=== PATIENT | female | born 2000 | race Caucasian/White ===

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

== ENCOUNTER 2021-03-18 12:55 | Emergency (ER) | payer OTHER, SELFPAY ==
[2021-03-18 12:55] VITALS: BP 130/95; PULSE 115; RESP 18; TEMP 37.1; O2SAT 97; BMI 43.0
[2021-03-18 13:17] LABS: Apearance,Urine Clear (Clear); Bilirubin,Urine Negative (Negative); Blood, Urine Negative (Negative); Color,Urine Yellow (Yellow); Glucose,Urine (UA) Negative (Negative); Ketones,Urine Negative (Negative); Protein,Urine Negative (Negative); Urobilinogen,Urine 0.2 EU/dl (0.2)
[2021-03-18 13:18] LABS: UTC Leukocyte Esterase,Urine Trace (Negative); UTC Nitrate,Urine Negative (Negative)
--- NOTE | 2021-03-18 13:32 | HMH.EDUTC ---
[facility] [place] Clinical Impression: Abdominal pain Qualifiers: Abdominal location: unspecified location Qualified Code(s): R10.9 - Unspecified abdominal pain Disposition: Still a Patient Condition on Discharge: Fair Referrals: Nash Ac [Primary Care Provider] - Time of Disposition: 14:11 Medical Decision Making - Medical Records Medical records reviewed: No: I reviewed the patient's medical records. - Dung Inquiry Pt receiving controlled substance: No Vital Signs: 03/18/21 12:55 Temperature 98.7 F Temperature Source Oral Pulse Rate [Right Brachial] 115 H Respiratory Rate 18 Blood Pressure [Right Arm] 130/95 H Blood Pressure Mean [Right Arm] 106 Blood Pressure Source [Right Arm] Automatic Cuff Blood Pressure Position [Right Arm] Sitting 02 Sat by Pulse Oximetry 97 Oxygen Delivery Method Room Air - Lab Data Lab results reviewed: Yes: I reviewed the patient's lab results. Lab Results 03/18/21 13:14: Urine Color Yellow, Urine Appearance Clear, Urine pH 5.0, Ur Specific [place] 1.030, Urine Protein Negative, Urine Glucose (UA) Negative, Urine Ketones Negative, Urine Blood Negative, Urine Nitrate Negative, Urine Bilirubin Negative, Urine Urobilinogen 0.2, Ur Leukocyte Esterase Trace 03/18/21 13:24: [facility]st Clinic Negative Orders (Tests/Meds): ORDERS Category Date Time Status Urine Culture Stat Micro 03/18/21 13:29 Received Medical Decision Narrative: She was transferred to the er for abdominal pain. [facility] [place] - General Stated complaint: right abdomen pain Time Seen by Provider: 03/18/21 13:33 Mode of Arrival: Ambulatory Source of Information: Patient Limitations: No Limitations Description of Symptoms (Recalled from Triage Doc. by RN): PATIENT C/O SEVERE PAIN TO RUQ X 2 WEEKS. STATES PAIN IS CONSTANT BUT WORSE WITH BREATHING AND URINATION. ALSO C/O NAUSEA, VOMITING, CHILLS, AND SWEATS HEENT Symptoms (Recalled from RN notes): No Resp Symptoms (Recalled from RN notes): No Skin Symptoms (Recalled from RN notes): No MS Symptoms (Recalled from RN notes): No Functional Status (Recalled from RN notes): WNL - History of Present Illness Provider Complaint: She states that she has had right sided abdominal pain for the past 2 weeks. She has been to the er at [place] when it began. She states that a ct scan was done there but the oral contrast hadnt went all thru her system, so her appendix was not visualized. - Related Data Home Medications Medication Instructions Recorded Confirmed Loperamide HCl [Loperamide] 2 mg PO QIDP PRN 03/18/21 03/18/21 Ondansetron [Zofran 4mg ODT] 4 mg PO BIDP PRN 03/18/21 03/18/21 Allergies Allergy/AdvReac Type Severity Reaction Status Date / Time alcohol Allergy Intermediate Itching, Verified 10/07/20 10:29 [From Mastisol Liquid Rash, Adhesive] Redness gum mastic Allergy Intermediate Itching, Verified 10/07/20 10:29 [From Mastisol Liquid Rash, Adhesive] Redness hydrocodone [HYDROCODONE] Allergy Intermediate I-ITCHING Verified 10/07/20 10:29 methyl salicylate Allergy Intermediate Itching, Verified 10/07/20 10:29 [From Mastisol Liquid Rash, Adhesive] Redness storax Allergy Intermediate Itching, Verified 10/07/20 10:29 [From Mastisol Liquid Rash, Adhesive] Redness povidone-iodine AdvReac Rash Verified 10/07/20 10:29 [From Betadine] soap [From Betadine] AdvReac Rash Verified 10/07/20 10:29 - Worker's Comp Is this a Worker's Comp case?: No [facility] [place] History - Hepatitis A Screen Drug use history?: No High risk sexual behaviors?: No History of sexually transmitted infection?: No Currently employed?: No Childcare worker?: No Do you have indoor plumbing?: Yes Do you have electricity?: Yes Attestation statement:: This patient has been screened for Hepatitis A risk factors. I have reviewed the patient's past medical history: Yes Medical History: Reports:: Asthma, MRSA Denies:: Cancer, Diab
[2021-03-18 13:42] LABS: UTC Pregnancy Test, Urine Negative (Negative)
--- NOTE | 2021-03-18 13:50 | PC.NURSE ---
PATIENT SENT TO ER PER Meme MARCOS APRN FOR FURTHER EVALUATION. REPORT GIVEN TO Deisy RUSS RN
[2021-03-18 14:28] VITALS: BP 126/66; PULSE 94; RESP 18; TEMP 36.8; O2SAT 100; BMI 42.9
--- NOTE | 2021-03-18 14:45 | HMH.EDGENADL ---
ED Disposition Clinical Impression: Right upper quadrant pain, Vomiting and diarrhea Disposition: Home, Self-Care Condition on Discharge: Good Instructions: DI for Acute Abdominal Pain, DI for Vomiting -- Adult, DI for Diarrhea and Traveler's Diarrhea -- Adult Additional Instructions: Continue Zofran or Phenergan and Imodium for symptoms. Follow-up with your primary care provider. Referrals: Nash Ac [Primary Care Provider] - - Critical Care Critical Care Time: No Attestation: On 03/18/21, the high probability of a clinically significant, sudden or life threatening deterioration of the following system(s) required my full and direct attention, intervention and personal management. The time I documented below is in addition to time spent performing reported procedures but includes the following listed in this critical care notation. Medical Decision Making - Dung Inquiry Pt receiving controlled substance: No Vital Signs: 03/18/21 12:55 03/18/21 14:28 03/18/21 15:00 Temperature 98.7 F 98.3 F Temperature Source Oral Oral Pulse Rate 102 H Pulse Rate [Right Brachial] 115 H 94 H Respiratory Rate 18 18 18 Blood Pressure 123/74 Blood Pressure [Right Arm] 130/95 H 126/66 Blood Pressure Mean Blood Pressure Mean [Right Arm] 106 86 Blood Pressure Source [Right Arm] Automatic Cuff Blood Pressure Position [Right Arm] Sitting 02 Sat by Pulse Oximetry 97 100 98 Oxygen Delivery Method Room Air Room Air 03/18/21 15:30 03/18/21 16:30 Temperature Temperature Source Pulse Rate 90 95 H Pulse Rate [Right Brachial] Respiratory Rate 90 H 18 Blood Pressure 116/81 125/76 Blood Pressure [Right Arm] Blood Pressure Mean 85 Blood Pressure Mean [Right Arm] Blood Pressure Source [Right Arm] Blood Pressure Position [Right Arm] 02 Sat by Pulse Oximetry 99 100 Oxygen Delivery Method - Lab Data Lab Results 03/18/21 13:14: Urine Color Yellow, Urine Appearance Clear, Urine pH 5.0, Ur Specific [place] 1.030, Urine Protein Negative, Urine Glucose (UA) Negative, Urine Ketones Negative, Urine Blood Negative, Urine Nitrate Negative, Urine Bilirubin Negative, Urine Urobilinogen 0.2, Ur Leukocyte Esterase Trace 03/18/21 13:24: [facility] Clinic Negative 03/18/21 14:16: WBC 6.2, RBC 4.54, Hgb 12.9, Hct 39.2, MCV 86.4, MCH 28.3, MCHC 32.8, RDW 13.8, Plt Count 314, MPV 8.2, Neut % (Auto) 62.4, Lymph % (Auto) 29.6, [place] % (Auto) 5.4, Eos % (Auto) 1.8, Baso % (Auto) 0.8, Neut # (Auto) 3.9, Lymph # (Auto) 1.8, [place] # (Auto) 0.3, Eos # (Auto) 0.1, Baso # (Auto) 0.1 03/18/21 14:16: Sodium 144, Potassium 3.9, Chloride 108 H, Carbon Dioxide 26, Anion Gap 13.9, BUN 10, Creatinine 0.80, Estimated Creat Clear 110, Estimated GFR 92, Est GFR ( Amer) 112, Glucose 79, Calcium 9.1, Total Bilirubin 0.5, AST 22, ALT 23, Alkaline Phosphatase 66, Total Protein 7.6, Albumin 4.4, Globulin 3.2, Albumin/Globulin Ratio 1.4, Amylase 54, Lipase 44 03/18/21 14:16: Serum HCG, Qual Negative 03/18/21 14:16: ESR 42 H 03/18/21 14:16: C-Reactive Protein 4.4 H Result diagrams: 03/18/21 14:16 03/18/21 14:16 Orders (Tests/Meds): ED MEDICATIONS Discontinued Medications Generic Name Dose Route Start Last Admin Trade Name Freq PRN Reason Stop Dose Admin Sodium Chloride 1,000 mls @ 999 mls/hr 03/18/21 14:45 03/18/21 15:25 Sod Chlor 0.9% 1000ml Bag IV 03/18/21 15:45 999 mls/hr .Q1H1M ABIMAEL Administration Iopamidol 75 ml 03/18/21 15:57 03/18/21 15:58 Iopamidol-370 (76%);100ml Bottle IV 03/18/21 15:58 75 ml ONCE ONE Administration Ketorolac Tromethamine 30 mg 03/18/21 15:17 03/18/21 15:25 Ketorolac 30mg/Ml Vial IV 03/18/21 15:18 30 mg ONCE ONE Administration Ondansetron HCl 4 mg 03/18/21 14:44 Ondansetron 4mg/2ml Vial IV 03/18/21 14:45 ONCE ONE Ondansetron HCl 4 mg 03/18/21 15:17 03/18/21 15:25 Ondansetron 4mg/2ml Vial IV 03/18/21 15:18 4 mg ONCE ONE Administrati
[2021-03-18 14:58] LABS: Basophils # 0.1 K/mm3 (0-0.2); Basophils % 0.8 % (0.1-2.0); Eosinophils # 0.1 K/mm3 (0.0-0.4); Eosinophils % 1.8 % (0.1-12.0); Hematocrit 39.2 % (37.0-47.0); Hemoglobin 12.9 g/dL (12.2-16.2); Lymphocytes # 1.8 K/mm3 (0.7-4.5); Lymphocytes % 29.6 % (10-50); Mean Corpuscular HGB Conc 32.8 g/dL (31.8-35.4); Mean Corpuscular Hemoglobin 28.3 pg (27.0-31.2); Mean Corpuscular Volume 86.4 fl (81-99); Mean Platelet Volume 8.2 fl (7.4-10.4); Monocytes # 0.3 K/mm3 (0.1-1.0); Monocytes % 5.4 % (1.7-9.3); Neutrophils # 3.9 K/mm3 (1.8-7.8); Neutrophils % 62.4 % (37.0-80.0); Platelet Count 314 K/mm3 (142-424); Red Blood Count 4.54 M/mm3 (4.20-5.40); Red Cell Distribution Width 13.8 % (11.5-17.5); White Blood Count 6.2 K/mm3 (4.5-13.0)
[2021-03-18 15:00] VITALS: BP 123/74; PULSE 102; RESP 18; O2SAT 98
[2021-03-18 15:09] LABS: HCG Qualitative, Serum Negative (Negative)
[2021-03-18 15:12] LABS: Alanine Aminotransferase 23 U/L (12-78); Albumin Level 4.4 g/dl (3.5-5.0); Albumin/Globulin Ratio 1.4 (1.1-1.8); Alkaline Phosphatase 66 U/L (38-126); Amylase 54 U/L (30-110); Anion Gap 13.9 mEq/L (5-15); Aspartate Amino Transferase 22 U/L (14-36); Bilirubin,Total 0.5 mg/dl (0.2-1.3); Blood Urea Nitrogen 10 mg/dl (7-17); Calcium 9.1 mg/dl (8.4-10.2); Carbon Dioxide 26 mmol/L (22.0-30.0); Chloride 108 mmol/L (98-107); Creatinine Clearance Estimated 110 mL/min (50-200); Estimated Glomerular Filt Rate 92 ml/min (>60); GFR (African American) 112 ML/MIN (>60); Globulin 3.2 g/dL (1.3-3.2); Glucose 79 mg/dl (74-100); Lipase 44 U/L (23-300); Potassium 3.9 mmoL/L (3.5-5.1); Sodium 144 mmol/L (136-145); Total Protein,Serum 7.6 g/dl (6.3-8.2)
--- NOTE | 2021-03-18 15:14 | US_ITS ---
PROCEDURE: US GALLBLADDER CLINICAL INDICATION: abdominal pain Right upper quadrant pain COMPARISON: No exams were available for comparison FINDINGS: Pancreas: Pancreas is not well delineated due to overlying bowel gas. Liver: Unremarkable. There is appropriate direction of blood flow within a non dilated portal vein. Right kidney: Unremarkable appearing. No hydronephrosis. Gallbladder: No stones are evident. There is no gallbladder wall thickening. Common duct is normal in diameter. IMPRESSION: Negative gallbladder ultrasound. No stones evident. Dictated by: Yuri Perez MD 03/18/2021 16:38 Yuri Perez MD in [place] 03/18/2021 16:38
--- NOTE | 2021-03-18 15:15 | CT_ITS ---
PROCEDURE: CT ABDOMEN PELVIS W CON CLINICAL INDICATION: abdominal pain Right upper quadrant pain COMPARISON: No exams were available for comparison TECHNIQUE: IV Contrast: 75ML Isovue 370 Oral Contrast None Axial images obtained with sagittal and coronal reformats. All CT scans at the facility use one or more dose reduction, viz: automated exposure control, ma/kV adjustment per patient size (including targeted exams where dose is matched to indication, i.e. head), or iterative reconstruction technique. FINDINGS: LOWER THORAX: No acute finding ABDOMEN & PELVIS: The liver, gallbladder, spleen, adrenal glands, pancreas, and kidneys have an unremarkable appearance. No renal or ureteral calculi. No hydronephrosis. No evidence of appendicitis. No pelvic mass or abnormal fluid collection. No intestinal obstruction or free air. There are few small mesenteric lymph nodes. No acute bony findings. IMPRESSION: No acute finding Dictated by: Yuri Perez MD 03/18/2021 16:19 Yuri Perez MD in [place] 03/18/2021 16:19
[2021-03-18 15:30] VITALS: BP 116/81; PULSE 90; RESP 90; O2SAT 99
[2021-03-18 15:31] LABS: C-Reactive Protein 4.4 mg/L (0-4)
[2021-03-18 15:50] LABS: Erythrocyte Sedimentation Rate 42 mm/hr (0-20)
[2021-03-18 16:30] VITALS: BP 125/76; PULSE 95; RESP 18; O2SAT 100
[2021-03-18 17:33] VITALS: BP 109/85; PULSE 90; RESP 20; TEMP 36.7; O2SAT 99
== END 2021-03-18 17:37 | disposition home or self-care (01) ==
LOC: UTC 12:59 → ER 13:57
PROVIDERS: Nurse Practitioner Family; Emergency Provider Emergency Medicine; PCP Pediatrics
DX: R10.11 Right upper quadrant pain (principal); J45.909 Unspecified asthma, uncomplicated
CPT/HCPCS: 74177; 76705; 80053; 81003; 81025; 82150; 83690; 84703; 85025; 85651; 86140; 87086; 96365; 96375; 99283; J2405; Q9967

== ENCOUNTER 2021-05-02 19:49 | Emergency (ER) | payer OTHER, SELFPAY ==
[2021-05-02 20:02] VITALS: BP 134/74; PULSE 95; RESP 16; TEMP 36.6; O2SAT 99; BMI 28.8
[2021-05-02 21:00] VITALS: BP 134/74; PULSE 95; RESP 16; TEMP 36.6; O2SAT 99; BMI 28.8
--- NOTE | 2021-05-02 21:41 | HMH.EDUTC ---
[facility] [place] Disposition Clinical Impression: Allergic reaction Qualifiers: Encounter type: initial encounter Qualified Code(s): T78.40XA - Allergy, unspecified, initial encounter Disposition: Home, Self-Care Condition on Discharge: Good Instructions: DI for General Allergic Reactions, Diphenhydramine Additional Instructions: Do not take any more of the Sumatriptan Follow up with your Family Doctor tomorrow and inform them of your reaction to new medication Return if needed Straight to ER if any life threatening symptoms Referrals: Nash Ac [Primary Care Provider] - As needed Time of Disposition: 22:14 Medical Decision Making - Dung Inquiry Pt receiving controlled substance: No Dung was queried for this patient: No Vital Signs: 05/02/21 20:02 05/02/21 21:00 05/02/21 22:09 Temperature 97.8 F 97.8 F 97.8 F Temperature Source Oral Oral Pulse Rate 95 H Pulse Rate [Right] 95 H 95 H Respiratory Rate 16 16 16 Blood Pressure 134/74 Blood Pressure [Right Arm] 134/74 134/74 Blood Pressure Mean [Right Arm] 94 94 Blood Pressure Source [Right Arm] Automatic Cuff Blood Pressure Position [Right Arm] Sitting 02 Sat by Pulse Oximetry 99 99 Oxygen Delivery Method Room Air Orders (Tests/Meds): ED MEDICATIONS Discontinued Medications Generic Name Dose Route Start Last Admin Trade Name Julianna PRN Reason Stop Dose Admin Methylprednisolone Sodium Succinate 125 mg 05/02/21 21:51 05/02/21 21:57 Methylprednisolone Sod Succ 125mg Vial IM 05/02/21 21:52 125 mg ONCE ONE Administration Medical Decision Narrative: Patient reports on Depo and denies chance of State that she has taken SoluMedrol injection in past without reactions or complications Rash improved and almost gone after injection [facility] [place] HPI - General Stated complaint: possible allergic reaction to new meds Time Seen by Provider: 05/02/21 21:41 Mode of Arrival: Ambulatory Source of Information: Patient Limitations: No Limitations Description of Symptoms (Recalled from Triage Doc. by RN): PATIENT C/O POSSIBLE ALLERGIC REACTION, ITCHING AND VOMITING HEENT Symptoms (Recalled from RN notes): No Resp Symptoms (Recalled from RN notes): No Skin Symptoms (Recalled from RN notes): Yes MS Symptoms (Recalled from RN notes): No Functional Status (Recalled from RN notes): WNL - History of Present Illness Provider Complaint: Patient state that she took a new medication that her PCP give her for Migraines State that after taking it she felt like she was itching all over, her throat was burning and she vomited State that now burning in throat and vomiting has stopped but still feeling itchy and has rash on her chest - Related Data Home Medications Medication Instructions Recorded Confirmed Loperamide HCl [Loperamide] 2 mg PO QIDP PRN 03/18/21 03/18/21 Ondansetron [Zofran 4mg ODT] 4 mg PO BIDP PRN 03/18/21 03/18/21 Allergies Allergy/AdvReac Type Severity Reaction Status Date / Time alcohol Allergy Intermediate Itching, Verified 10/07/20 10:29 [From Mastisol Liquid Rash, Adhesive] Redness gum mastic Allergy Intermediate Itching, Verified 10/07/20 10:29 [From Mastisol Liquid Rash, Adhesive] Redness hydrocodone [HYDROCODONE] Allergy Intermediate I-ITCHING Verified 10/07/20 10:29 methyl salicylate Allergy Intermediate Itching, Verified 10/07/20 10:29 [From Mastisol Liquid Rash, Adhesive] Redness storax Allergy Intermediate Itching, Verified 10/07/20 10:29 [From Mastisol Liquid Rash, Adhesive] Redness povidone-iodine AdvReac Rash Verified 10/07/20 10:29 [From Betadine] soap [From Betadine] AdvReac Rash Verified 10/07/20 10:29 - Worker's Comp Is this a Worker's Comp case?: No [facility] History - Hepatitis A Screen Drug use history?: No High risk sexual behaviors?: No History of sexually transmitted infection?: No Currently employed?: No Childcare worker?: No Do you have indoor p
[2021-05-02 22:09] VITALS: BP 134/74; PULSE 95; RESP 16; TEMP 36.6; O2SAT 99
== END 2021-05-02 22:25 | disposition home or self-care (01) ==
PROVIDERS: Emergency Provider Nurse Practitioner; PCP Pediatrics
DX: R11.10 Vomiting, unspecified (principal); T39.8X5A Adverse effect of other nonopioid analgesics and antipyretics, not elsewhere classified, initial encounter; Y92.019 Unspecified place in single-family (private) house as the place of occurrence of the external cause
CPT/HCPCS: 96372; 99202; G0463

== ENCOUNTER → 2021-09-05 10:06 | Outpatient (CLI) | payer OTHER, SELFPAY ==
--- NOTE | 2021-09-05 10:11 | XR_ITS ---
FINAL REPORT CLINICAL HISTORY: Pain for 1 month ,no known injury, pt has had sx on foot in 2019 and 2019 FINDINGS: LEFT FOOT Three views of the left foot demonstrate no acute fracture or dislocation. The visualized joint spaces are normally aligned. There is orthopedic hardware defects of the 2nd 3rd and 4th metatarsals. The soft tissues are unremarkable. IMPRESSION: No acute bony abnormality. Reviewed, Interpreted and Dictated by Edi Dee MD Transcribed by Glory Sheldon Authenticated by Edi Dee MD on 09/05/2021 10:42:50 AM [facility]
== END ==
PROVIDERS: PCP Pediatrics; Visit Provider Podiatrist
DX: M79.672 Pain in left foot (principal)
CPT/HCPCS: 73630

== ENCOUNTER → 2021-11-05 08:35 | Outpatient (CLI) | payer OTHER, SELFPAY ==
--- NOTE | 2021-11-05 08:35 | MR_ITS ---
FINAL REPORT CLINICAL HISTORY: pt states that she has a hx of having surgery on left foot. towards the distal end of phalanxes. she had plates and screws placed and then taken out. now experiencing similar pain to prior surgery. nki. COMPARISON: 07/30/2020 FINDINGS: Multiplanar MR imaging of the left lower leg was performed with and without contrast. There is mild bone marrow edema in the proximal second metatarsal without well-defined fracture. Abnormal T2 signal is seen dorsal to the third metatarsal which may represent edema or inflammation with contrast enhancement in the region likely related to inflammation. No bony mass is identified. The musculature is intact. No soft tissue mass or cyst is identified. There is no other evidence of abnormal contrast enhancement. IMPRESSION: Mild bone marrow edema in the proximal second metatarsal without well-defined fracture. Abnormal T2 signal dorsal to the third metatarsal with contrast-enhancement which may represent edema/inflammation. Reviewed, Interpreted and Dictated by Chino Montejo III, MD Transcribed by Antionette Ramos Authenticated by Chino Montejo III, MD on 11/07/2021 08:58:01 AM [facility]
== END ==
PROVIDERS: PCP Pediatrics; Visit Provider Podiatrist
DX: G57.62 Lesion of plantar nerve, left lower limb (principal); M77.42 Metatarsalgia, left foot; M77.52 Other enthesopathy of left foot and ankle; M79.605 Pain in left leg; M79.672 Pain in left foot; R20.2 Paresthesia of skin
CPT/HCPCS: 73720; A9576

== ENCOUNTER → 2021-12-12 07:39 | Outpatient (CLI) | payer OTHER, SELFPAY ==
--- NOTE | 2021-12-12 07:42 | XR_ITS ---
FINAL REPORT CLINICAL HISTORY: left foot pain wt bearing views pt shielded COMPARISON: September 05, 2021 FINDINGS: 3 weight-bearing views of the left foot were obtained. There is no acute fracture or dislocation. The joint spaces are intact. The soft tissues are unremarkable. IMPRESSION: No acute process. Reviewed, Interpreted and Dictated by Edi Dee MD Transcribed by Kian Gregg Authenticated by Edi Dee MD on 12/12/2021 11:05:21 AM [facility]
== END ==
PROVIDERS: PCP Pediatrics; Visit Provider Podiatrist
DX: M79.672 Pain in left foot (principal)
CPT/HCPCS: 73630

== ENCOUNTER 2023-07-31 16:32 | Emergency (ER) | payer OTHER, SELFPAY ==
[2023-07-31 16:33] VITALS: BP 124/85; PULSE 106; RESP 16; TEMP 36.8; O2SAT 100; BMI 41.3
--- NOTE | 2023-07-31 16:44 | HMH.EDGENADL ---
Discharge Plan Disposition Patient Disposition: Home, Self-Care Prescriptions Prescriptions: New ondansetron HCl 4 mg tablet 4 mg PO Q8H PRN (Reason: nausea and vomiting) 5 Days Qty: 30 0RF No Action budesonide-formoterol [Symbicort] 160-4.5 mcg/actuation HFA aerosol inhaler 1 puff INHALATION albuterol sulfate 90 mcg/actuation HFA aerosol inhaler 1 puff INHALATION Wegovy 0.25 mg/0.5 mL pen injector SQ Ubrelvy 50 mg tablet 50 mg PO Patient Comments: TAKE ONE TABLET BY MOUTH DAILY NEEDED. MAY REPEAT IN 2 HOURS IF NEEDED. levocetirizine 5 mg tablet 5 mg PO ketotifen fumarate 0.025 % (0.035 %) drops OPHTHALMIC fluticasone propionate 50 mcg/actuation spray,suspension INTRANASAL cyclobenzaprine 5 mg tablet 5 mg PO HS PRN (Reason: muscle spasm) Qty: 30 0RF Rx Instructions: Take one tablet at night before bed prn muscle cramp/spasm methylprednisolone 4 mg tablets,dose pack 4 mg PO PER PKG DIR PRN (Reason: Pain, swelling) Qty: 21 0RF Referrals Follow up/Referrals: Nash Ac [Primary Care Provider] - See instructions Activity Restrictions/Add. Instructions Additional Instructions/Restrictions: Please follow-up with your primary care provider. Please return to the emergency department if you develop any new or worsening symptoms or become concerned for your health. Please take Zofran as needed for nausea and vomiting. Clinical Impressions Clinical Impression: Nausea vomiting and diarrhea, Acute hypokalemia Abdominal pain Qualifiers: Abdominal location: right upper quadrant Qualified Code(s): R10.11 - Right upper quadrant pain Instructions Patient Instructions: DI for Diarrhea and Traveler's Diarrhea -- Adult, DI for Diarrhea and Traveler's Diarrhea -- Child, DI for Nausea -- Adult, DI for Nausea -- Child Discharge ED Provider: Christian Ling General Adult HPI General Chief complaint: Nausea/Vomiting/Diarrhea Stated complaint: vomiting, abd apin Time Seen by Provider: 07/31/23 16:35 History of Present Illness HPI narrative: 22-year-old female, reportedly previously healthy, mildly obese, presents with acute onset right upper quadrant pain that started yesterday at around 5 PM. Continues to be localized in the right upper quadrant. Is associated with nausea vomiting. She is also had some diarrhea. She reports no fever at home. She reports strong family history of gallbladder disease. She reports no prior surgeries. She denies smoking or drinking. She is on control. Reports irregular periods, last menstrual period 2 months ago. Related Data Home Medications Medication Instructions Recorded Confirmed albuterol sulfate 90 mcg/actuation 1 puff inhalation 11/21/21 12/12/21 aerosol inhaler budesonide-formoterol HFA 160 1 puff inhalation 11/21/21 12/12/21 mcg-4.5 mcg/actuation aerosol inhaler (Symbicort) fluticasone propionate 50 ml intranasal 11/21/21 12/12/21 mcg/actuation nasal spray,suspension ketotifen fumarate 0.025 % (0.035 ml ophthalmic (eye) 11/21/21 12/12/21 %) eye drops levocetirizine 5 mg tablet 5 mg PO 11/21/21 12/12/21 semaglutide (weight loss) 0.25 ml SQ 11/21/21 12/12/21 mg/0.5 mL subcutaneous pen injector (Wegovy) ubrogepant 50 mg tablet (Ubrelvy) 50 mg PO 11/21/21 12/12/21 Previous Rx's Medication Instructions Recorded cyclobenzaprine 5 mg tablet 5 mg PO HS PRN muscle spasm #30 09/05/21 tabs methylprednisolone 4 mg tablets in 4 mg PO PER PKG DIR PRN Pain, 11/23/21 a dose pack swelling #21 tabs ondansetron HCl 4 mg tablet 4 mg PO Q8H PRN nausea and 07/31/23 vomiting 5 days #30 tabs Allergies Allergy/AdvReac Type Severity Reaction Status Date / Time alcohol Allergy Intermediate Itching, Verified 06/19/23 11:35 [From Mastisol Liquid Rash, Adhesive] Redness gum mastic Allergy Intermediate Itching, Verified 06/19/23 11:35 [From Mastisol Liquid Ra
--- NOTE | 2023-07-31 16:49 | CT_ITS ---
PROCEDURE INFORMATION: Exam: CT Abdomen And Pelvis With Contrast Exam date and time: 07/31/2023 5:55 PM Age: 22 years old Clinical indication: Abdominal pain; Generalized; Additional info: Ruq pain, n/v/diarrhea TECHNIQUE: Imaging protocol: Computed tomography of the abdomen and pelvis with contrast. Radiation optimization: All CT scans at this facility use at least one of these dose optimization techniques: automated exposure control; mA and/or kV adjustment per patient size (includes targeted exams where dose is matched to clinical indication); or iterative reconstruction. Contrast material: ISOVUE; Contrast volume: 75 ml; Contrast route: IV; REPORTING DATA: Count of CT and Cardiac NM exams in prior 12 months: This patient has received 0 known CTs and 0 known cardiac nuclear medicine studies in the 12 months prior to the current study. COMPARISON: CT ABDOMEN PELVIS W CON 03/18/2021 3:56 PM FINDINGS: Lungs: Calcified granuloma at the right lung base. There are areas of subpleural reticulation throughout the visualized lungs which are nonspecific. Diaphragm: There is elevation of the right hemidiaphragm. Liver: Normal. No mass. Gallbladder and bile ducts: Normal. No calcified stones. No ductal dilation. Pancreas: The pancreas is of normal size and morphology, without evidence of masses, cysts, or calcifications. The pancreatic duct is not dilated. Spleen: The spleen is normal in size and attenuation. No splenic masses or cysts are observed. Adrenal glands: The adrenal glands appear normal. Kidneys and ureters: Both kidneys are of normal size and show uniform attenuation. There are no renal masses, cysts, or calculi. The adrenal glands appear normal. Stomach and bowel: The stomach, small bowel, and colon are well-distended and show no evidence of wall thickening, masses, or obstruction. Appendix: No evidence of appendicitis. Intraperitoneal space: Unremarkable. No free air. No significant fluid collection. Vasculature: Multiple pelvic phleboliths are present. Lymph nodes: There are mildly prominent but nonenlarged and nonspecific retroperitoneal nodes. Mesenteric nodes Urinary bladder: Unremarkable as visualized. Reproductive: No significant pathology. Bones/joints: The visualized osseous structures of the abdomen and pelvis appear intact and normal for patient age with no evidence of fractures or lytic or sclerotic lesions. Soft tissues: Unremarkable. IMPRESSION: No definite signs of inflammatory conditions, masses, adenopathy, or collections were observed in the abdomen or pelvis at the time of imaging. Additionally, the urinary tract and gastrointestinal system did not show any evidence of obstruction on the images acquired.
[2023-07-31 17:14] LABS: Microscopic, Urine URINE MICROSCOPIC (MICROSCOPIC)
[2023-07-31 17:17] LABS: Basophils % 0.6 % (0.1-2.0); Eosinophils % 1.2 % (0.1-12.0); Hematocrit 39.8 % (37.0-47.0); Hemoglobin 13.4 g/dL (12.2-16.2); Lymphocytes # 1.3 K/mm3 (0.7-4.5); Lymphocytes % 35.9 % (10-50); Mean Corpuscular HGB Conc 33.6 g/dL (31.8-35.4); Mean Corpuscular Volume 86.2 fl (81-99); Mean Platelet Volume 8.8 fl (7.4-10.4); Monocytes # 0.2 K/mm3 (0.1-1.0); Monocytes % 6.8 % (1.7-9.3); Neutrophils % 55.5 % (37.0-80.0); Platelet Count 267 K/mm3 (142-424); Red Blood Count 4.62 M/mm3 (4.20-5.40); White Blood Count 3.6 K/mm3 (4.8-10.8)
[2023-07-31 17:20] LABS: Appearance,Urine CLEAR (Clear); Blood, Urine Negative (Negative); Color,Urine YELLOW (Yellow); Glucose,Urine (UA) Negative (Negative); Ketones,Urine Negative (Negative); Leukocyte Esterase,Urine Negative (Negative); Nitrate,Urine POSITIVE (Negative); Protein,Urine TRACE (Negative); Specific Gravity, Urine >= 1.030 (1.005-1.030); Urobilinogen,Urine 0.2 EU/dl (0.2)
[2023-07-31 17:21] LABS: Chloride 102 mmol/L (98-107); Potassium 3.3 mmoL/L (3.5-5.1); Sodium 139 mmol/L (136-145)
[2023-07-31 17:23] LABS: Alanine Aminotransferase 25 U/L (12-78); Aspartate Amino Transferase 27 U/L (14-36); Blood Urea Nitrogen 14 mg/dl (7-17); Creatinine Clearance Estimated 87 mL/min (50-200); Estimated Glomerular Filt Rate 70 ml/min (>60); GFR (African American) 85 ML/MIN (>60)
[2023-07-31 17:24] LABS: Albumin Level 4.4 g/dl (3.5-5.0); Albumin/Globulin Ratio 1.2 (1.1-1.8); Alkaline Phosphatase 52 U/L (38-126); Anion Gap 11.3 mEq/L (5-15); Bilirubin,Total 0.9 mg/dl (0.2-1.3); Calcium 8.9 mg/dl (8.4-10.2); Carbon Dioxide 29 mmol/L (22.0-30.0); Globulin 3.6 g/dL (1.3-3.2); Glucose 88 mg/dl (74-100); Lipase 27 U/L (23-300)
[2023-07-31 17:26] LABS: HCG Qualitative, Serum Negative (Negative)
[2023-07-31 17:39] LABS: Bilirubin,Urine 1+ (Negative)
[2023-07-31 17:55] LABS: Bacteria,Urine Trace /lpf
[2023-07-31 18:36] VITALS: BP 141/90; PULSE 95; RESP 18; TEMP 36.9; O2SAT 98
== END 2023-07-31 18:37 | disposition home or self-care (01) ==
PROVIDERS: Emergency Provider Emergency Medicine; PCP Pediatrics
DX: R10.11 Right upper quadrant pain (principal); E87.6 Hypokalemia; R11.2 Nausea with vomiting, unspecified; R19.7 Diarrhea, unspecified; E66.9 Obesity, unspecified
CPT/HCPCS: 74177; 80053; 81001; 83690; 84703; 85025; 96361; 96374; 99284; J2405; Q9967

== ENCOUNTER → 2023-08-06 16:28 | Outpatient (CLI) | payer OTHER, SELFPAY ==
--- NOTE | 2023-08-06 16:32 | XR_ITS ---
PROCEDURE INFORMATION: Exam: XR Chest Exam date and time: 08/06/2023 4:40 PM Age: 22 years old Clinical indication: Cough; Additional info: Moderate persistant asthma with exacerbation TECHNIQUE: Imaging protocol: Radiologic exam of the chest. Views: 2 views. COMPARISON: CT ABDOMEN PELVIS W CON 07/31/2023 5:55 PM FINDINGS: Lungs: Consolidative opacity in the right middle lobe compatible with subsegmental atelectasis vs infiltrate. Pleural spaces: No significant pleural effusion. No pneumothorax. Heart/Mediastinum: Cardiomediastinal silouhette is within normal limits. Bones/joints: No evidence of acute osseous abnormality. IMPRESSION: Consolidative opacity in the right middle lobe compatible with subsegmental atelectasis vs infiltrate.
== END ==
PROVIDERS: PCP Pediatrics; Visit Provider Family Medicine
DX: J45.41 Moderate persistent asthma with (acute) exacerbation (principal); R05.9 Cough, unspecified
CPT/HCPCS: 71046

== ENCOUNTER 2023-09-18 14:13 | Outpatient (CLI) | payer OTHER, SELFPAY ==
[2023-09-18 14:38] LABS: Basophils % 0.6 % (0.1-2.0); Eosinophils # 0.1 K/mm3 (0.0-0.4); Eosinophils % 1.3 % (0.1-12.0); Hematocrit 41.3 % (37.0-47.0); Hemoglobin 13.1 g/dL (12.2-16.2); Lymphocytes # 1.2 K/mm3 (0.7-4.5); Lymphocytes % 34.6 % (10-50); Mean Corpuscular HGB Conc 31.8 g/dL (31.8-35.4); Mean Corpuscular Hemoglobin 27.7 pg (27.0-31.2); Mean Platelet Volume 7.6 fl (7.4-10.4); Monocytes # 0.3 K/mm3 (0.1-1.0); Neutrophils % 55.5 % (37.0-80.0); Platelet Count 280 K/mm3 (142-424); Red Blood Count 4.74 M/mm3 (4.20-5.40); Red Cell Distribution Width 13.5 % (11.5-17.5); White Blood Count 3.6 K/mm3 (4.8-10.8)
[2023-09-18 14:55] LABS: Chloride 105 mmol/L (98-107); Potassium 4.3 mmoL/L (3.5-5.1); Sodium 139 mmol/L (136-145)
[2023-09-18 14:57] LABS: Bilirubin,Unconjugated 0.5 mg/dL (0.0-1.1); Blood Urea Nitrogen 16 mg/dl (7-17); Estimated Glomerular Filt Rate 90 ml/min (>60); GFR (African American) 109 ML/MIN (>60)
[2023-09-18 14:58] LABS: Alanine Aminotransferase 18 U/L (12-78); Alkaline Phosphatase 46 U/L (38-126); Anion Gap 10.3 mEq/L (5-15); Aspartate Amino Transferase 22 U/L (14-36); Bilirubin,Indirect 0.5 mg/dL (0.0-0.9); Bilirubin,Total 0.5 mg/dl (0.2-1.3); Calcium 9.3 mg/dl (8.4-10.2); Carbon Dioxide 28 mmol/L (22.0-30.0); Cholesterol 187 mg/dl (140-200); Glucose 97 mg/dl (74-100); Magnesium 1.8 mg/dl (1.6-2.3); Total Protein,Serum 6.9 g/dl (6.3-8.2); Triglycerides 144 mg/dl (30-150); VLDL Cholesterol 29 mg/dL (0-40)
[2023-09-18 14:59] LABS: Chol/HDL Ratio 3.3 (1-3.5); HDL Cholesterol 57 mg/dl (40-60)
[2023-09-18 15:17] LABS: Free T4 (Free Thyroxine) 1.28 ng/dl (0.78-2.19)
[2023-09-18 15:19] LABS: Direct LDL Cholesterol 110.02 mg/dL (100-129)
[2023-09-18 15:30] LABS: Thyroid Stimulating Hormone 1.03 uIU/mL (0.465-4.68)
== END 2023-09-18 23:59 ==
LOC: RT 14:14
PROVIDERS: PCP Pediatrics; Visit Provider Nurse Practitioner
DX: R00.0 Tachycardia, unspecified (principal); R06.02 Shortness of breath; R07.89 Other chest pain; R94.31 Abnormal electrocardiogram [ECG] [EKG]
CPT/HCPCS: 36415; 80048; 80061; 80076; 83735; 84439; 84443; 85025; 93270

== ENCOUNTER 2023-09-19 15:50 | Emergency (ER) | payer OTHER, SELFPAY ==
[2023-09-19 15:52] VITALS: BP 124/90; PULSE 87; RESP 15; TEMP 36.8; O2SAT 98; BMI 40.7
--- NOTE | 2023-09-19 16:08 | US_ITS ---
PROCEDURE INFORMATION: Exam: US Abdomen, Limited; Right Upper Quadrant Exam date and time: 09/19/2023 4:15 PM Age: 23 years old Clinical indication: Abdominal pain; Additional info: Ruq pain radiating to back TECHNIQUE: Imaging protocol: Real time ultrasound of the abdomen with image documentation. Limited exam focused on the right upper quadrant. COMPARISON: US GALLBLADDER 03/18/2021 3:34 PM FINDINGS: Liver: Normal. No masses. Gallbladder: Normal. No gallstones. There is no gallbladder wall thickening. Biliary ducts: Normal. No stones. No dilation. Pancreas: Obscured by bowel gas. Right kidney: Normal. No mass. No hydronephrosis. IMPRESSION: No acute findings.
[2023-09-19 16:12] LABS: Microscopic, Urine URINE MICROSCOPIC (MICROSCOPIC)
--- NOTE | 2023-09-19 16:24 | [facility].EDGENADL ---
Discharge Plan Disposition Patient Disposition: Home, Self-Care Chief Complaint: Abdominal Pain Prescriptions Prescriptions: No Action cyclobenzaprine 5 mg tablet 5 mg PO HS PRN (Reason: muscle spasm) Qty: 30 0RF Rx Instructions: Take one tablet at night before bed prn muscle cramp/spasm desogestrel-ethinyl estradiol [Apri] 0.15-0.03 mg tablet PO Referrals Follow up/Referrals: Nash Ac [Primary Care Provider] - See instructions Activity Restrictions/Add. Instructions Additional Instructions/Restrictions: Call your family doctor to establish care for this visit to the emergency department and schedule follow-up within 48 hours to ensure improvement. If you have any worsening of your condition or any other concerning signs or symptoms, return to the emergency department or your primary care doctor for further evaluation. Also follow-up with your family doctor regarding white blood cell count. It was a little low today at 2.4 thousand, likely secondary to GI bug that you have. They will be able to redraw labs and make sure this is responding appropriately. Clinical Impressions Clinical Impression: Diarrhea, Abdominal pain Instructions Patient Instructions: DI for Acute Abdominal Pain Discharge ED Provider: uMrray Haro General Adult HPI General Chief complaint: Abdominal Pain Stated complaint: Abdominal Pain,nausea Time Seen by Provider: 09/19/23 15:54 Mode of Arrival: Ambulatory Source of Information: Patient Limitations: No Limitations Description of Symptoms (Recalled from ER Triage Doc. by RN): pt presents to ED with c/o RUQ abdominal pain that began approx 45 mins ago. pt reports pain as constant. radiation into back. History of Present Illness HPI narrative: 23-year-old female presenting with abdominal pain. She had this a couple months ago and was diagnosed with concern for cholecystitis, but nonoperative at that time ultimately. Patient having similar pain. Start about an hour ago after she was eating. Right upper quadrant, radiates straight through to her back. Associated with nausea without vomiting. Patient also started having diarrhea this nonbloody today without fevers or chills. States that she is also having hematuria without dysuria, frequency or urgency. Related Data Home Medications Medication Instructions Recorded Confirmed desogestrel 0.15 mg-ethinyl tab PO 09/18/23 09/18/23 estradiol 0.03 mg tablet (Apri) Previous Rx's Medication Instructions Recorded cyclobenzaprine 5 mg tablet 5 mg PO HS PRN muscle spasm #30 09/05/21 tabs Allergies Allergy/AdvReac Type Severity Reaction Status Date / Time alcohol Allergy Intermediate Itching, Verified 09/18/23 12:59 [From Mastisol Liquid Rash, Adhesive] Redness gum mastic Allergy Intermediate Itching, Verified 09/18/23 12:59 [From Mastisol Liquid Rash, Adhesive] Redness hydrocodone [HYDROCODONE] Allergy Intermediate I-ITCHING Verified 09/18/23 12:59 methyl salicylate Allergy Intermediate Itching, Verified 09/18/23 12:59 [From Mastisol Liquid Rash, Adhesive] Redness storax Allergy Intermediate Itching, Verified 09/18/23 12:59 [From Mastisol Liquid Rash, Adhesive] Redness Sulfa (Sulfonamide Allergy Verified 09/18/23 12:59 Antibiotics) povidone-iodine AdvReac Rash Verified 09/18/23 12:59 [From Betadine] soap [From Betadine] AdvReac Rash Verified 09/18/23 12:59 [facility] Disclaimer: The information contained in this section may have been updated after the patient was seen, as this information can be updated by other users. Medical History (Updated 09/19/23 @ 17:55 by Murray Haro MD) Abnormal ECG Chest pain Dyspnea Tachycardia Social History Smoking Status: Never smoker second hand exposure: No alcohol intake: never substance use type: denies use current occupational status: other Travel in the last 8 weeks: None household members: family housing: house current occupation: [employer] current occupational exposures/hazards: No caffeine: Yes ROS Obtained: Yes All systems reviewed & no additional complaints except as documented Physical Exam General General appearance: alert and in no apparent distress Head Head exam: atraumatic and normocephalic Eye Eye exam: Present normal appearance, PERRL and EOMI ENT ENT exam: Present mucous membranes moist Neck Neck exam: Present normal inspection, full ROM and trachea midline Respiratory Respiratory exam: Absent respiratory distress, wheezes, stridor, accessory muscle use or prolonged expiratory phase Cardiovascular Cardiovascular exam: Present regular rate and normal rhythm Abdominal Exam Abdominal exam: Present soft, tenderness and Teixeira's sign; Absent distention, guarding, rebound or rigidity Abdominal tenderness: Present RUQ and moderate Extremities Exam Extremities exam: Absent edema Neurological Exam Neurological exam: Present alert, oriented X3, CN II-XII intact and normal gait; Absent motor sensory deficit Skin Skin exam: Present warm and dry; Absent diaphoresis or erythema Medical Decision Making Medical Records Medical records reviewed: Yes I reviewed the patient's medical records. Dung Inquiry Pt receiving controlled substance: No Dung was queried for this patient: No Vital Signs: 09/19/23 15:52 Temperature 98.2 F Temperature Source Oral Pulse Rate [Left Radial] 87 Respiratory Rate 15 Blood Pressure [Right Arm] 124/90 Blood Pressure Mean [Right Arm] 101 02 Sat by Pulse Oximetry 98 Oxygen Delivery Method Room Air Lab Data Lab Results 09/19/23 16:02: Urine Color Yellow, Urine Appearance Clear, Urine pH 5.5, Ur Specific [place] >= 1.030, Urine Protein Negative, Urine Glucose (UA) Negative, Urine Ketones Negative, Urine Blood 3+, Urine Nitrate Negative, Urine Bilirubin Negative, Urine Urobilinogen 0.2, Ur Leukocyte Esterase Negative, Urine RBC 3-5, Urine WBC Occasional, Ur Squamous Epith Cells Occasional, Urine Bacteria 1+, Urine Mucus Trace 09/19/23 16:50: WBC 2.4 L D, RBC 4.50, Hgb 13.3, Hct 38.9, MCV 86.6, MCH 29.6, MCHC 34.2, RDW 13.9, Plt Count 204 D, MPV 8.2, Neut % (Auto) 53.4, Lymph % (Auto) 37.3, [place] % (Auto) 8.2, Eos % (Auto) 0.6, Baso % (Auto) 0.6, Neut # (Auto) 1.3 L, Lymph # (Auto) 0.9, [place] # (Auto) 0.2, Eos # (Auto) 0.0, Baso # (Auto) 0.0, Sodium 137, Potassium 4.1, Chloride 105, Carbon Dioxide 28, Anion Gap 8.1, BUN 14, Creatinine 0.80, Estimated Creat Clear 205, Estimated GFR 90, Est GFR ( Amer) 109, Glucose 93, Calcium 9.1, Total Bilirubin 0.5, AST 26, ALT 21, Alkaline Phosphatase 48, Total Protein 7.3, Albumin 4.0, Globulin 3.3 H, Albumin/Globulin Ratio 1.2, Lipase 61, HCG, Quant < 2 09/19/23 16:50 09/19/23 16:50 Orders (Tests/Meds): ED MEDICATIONS Generic Name Dose Route Start Last Admin Trade Name Freq PRN Reason Stop Dose Admin Sodium Chloride 8 ml 09/19/23 16:10 09/19/23 16:55 Sodium Chloride 0.9% 10ml Vial IV 10/19/23 16:09 8 ml NEEDED PRN Administration dilute pepcid Discontinued Medications Generic Name Dose Route Start Last Admin Trade Name Freq PRN Reason Stop Dose Admin Famotidine 20 mg 09/19/23 16:10 09/19/23 16:52 Famotidine 20mg/2ml Vial IV 09/19/23 16:11 20 mg ONCE ONE Administration Ketorolac Tromethamine 15 mg 09/19/23 16:10 09/19/23 16:53 Ketorolac 30mg/Ml Vial IV 09/19/23 16:11 15 mg ONCE ONE Administration ORDERS Category Date Time Status US RUQ [US abdomen limited] Stat Exams 09/19/23 16:08 Completed CBC w/Auto Diff [Complete Blood Count Auto Diff] Stat Lab 09/19/23 16:50 Completed CMP [Comprehensive Metabolic Panel] Stat Lab 09/19/23 16:50 Completed HCG,Quantitative Stat Lab 09/19/23 16:50 Completed Lactic Acid Stat Lab 09/19/23 16:08 Ordered Lipase Stat Lab 09/19/23 16:50 Completed UA [Urinalysis and Microscopic] Stat Lab 09/19/23 16:02 Completed Medical Decision Narrative: 23-year-old female presenting with abdominal pain. She had this a couple months ago and was diagnosed with concern for cholecystitis, but nonoperative at that time ultimately. Patient having similar pain. Start about an hour ago after she was eating. Right upper quadrant, radiates straight through to her back. Associated with nausea without vomiting. Patient also started having diarrhea this nonbloody today without fevers or chills. States that she is also having hematuria without dysuria, frequency or urgency.. History was obtained via conversation with patient. On arrival, patient hemodynamically stable, alert, oriented x4, appropriate, GCS 15, moving all extremities spontaneously, pupils equal and reactive to light. Full physical exam performed and significant for Teixeira sign positive right upper quadrant tenderness. Abdomen soft and nondistended otherwise. No other signs of peritonitis. No flank tenderness. Hemodynamically stable, afebrile, in no acute distress. Differential includes PUD, gastritis, enteritis, gastroenteritis, pancreatitis,colitis, nephrolithiasis, UTI, ectopic , cholecystitis, appendicitis, hepatitis, among others. Patient was given Toradol, fluids, Pepcid for symptomatic management and correction of underlying abnormalities. Workup independently interpreted and significant for nonactionable CBC or chemistry. Patient does have relative neutropenia and lymphopenia, likely secondary to acute viral syndrome given gastroenteritis symptoms. negative, urine negative, lipase negative. Right upper quadrant ultrasound without acute cholecystitis. See radiology read for full review of final results. On reevaluation, patient resting comfortably bed.given patient presentation, workup, history, this most likely represents gastroenteritis. Because patient at baseline without signs or symptoms of clinical decompensation, deemed appropriate for discharge. Results were relayed to patient who voiced understanding and were agreeable to outpatient management and follow up. At the time of discharge the patient was hemodynamically stable, tolerating PO, and mobilizing appropriately. Critical Care Critical Care Time Critical Care Time: No
[2023-09-19 16:27] LABS: Appearance,Urine CLEAR (Clear); Bilirubin,Urine Negative (Negative); Blood, Urine 3+ (Negative); Color,Urine YELLOW (Yellow); Glucose,Urine (UA) Negative (Negative); Ketones,Urine Negative (Negative); Leukocyte Esterase,Urine Negative (Negative); Nitrate,Urine Negative (Negative); PH,Urine 5.5 (5.0-8.5); Protein,Urine Negative (Negative); Specific Gravity, Urine >= 1.030 (1.005-1.030); Urobilinogen,Urine 0.2 EU/dl (0.2)
[2023-09-19 16:28] LABS: Bacteria,Urine 1+ /lpf; Mucus,Urine Trace /lpf; Squamous Epithelial Cell,Urine Occasional #/hpf (0-5); WBC,Urine Occasional #/hpf (0-3)
[2023-09-19] MEDS: FAMOTIDINE 20MG/2ML VIAL 20 MG IV (16:52)
[2023-09-19] MEDS: KETOROLAC 30MG/ML VIAL 15 MG IV (16:53)
[2023-09-19] MEDS: SODIUM CHLORIDE 0.9% 10ML VIAL 8 ML IV (16:55)
[2023-09-19 17:04] LABS: Basophils % 0.6 % (0.1-2.0); Eosinophils % 0.6 % (0.1-12.0); Hematocrit 38.9 % (37.0-47.0); Hemoglobin 13.3 g/dL (12.2-16.2); Lymphocytes # 0.9 K/mm3 (0.7-4.5); Lymphocytes % 37.3 % (10-50); Mean Corpuscular HGB Conc 34.2 g/dL (31.8-35.4); Mean Corpuscular Hemoglobin 29.6 pg (27.0-31.2); Mean Corpuscular Volume 86.6 fl (81-99); Mean Platelet Volume 8.2 fl (7.4-10.4); Monocytes # 0.2 K/mm3 (0.1-1.0); Monocytes % 8.2 % (1.7-9.3); Neutrophils # 1.3 K/mm3 (1.8-7.8); Neutrophils % 53.4 % (37.0-80.0); Platelet Count 204 K/mm3 (142-424); Red Cell Distribution Width 13.9 % (11.5-17.5); White Blood Count 2.4 K/mm3 (4.8-10.8)
[2023-09-19 17:07] LABS: Chloride 105 mmol/L (98-107); Potassium 4.1 mmoL/L (3.5-5.1); Sodium 137 mmol/L (136-145)
[2023-09-19 17:10] LABS: Alanine Aminotransferase 21 U/L (12-78); Albumin/Globulin Ratio 1.2 (1.1-1.8); Alkaline Phosphatase 48 U/L (38-126); Anion Gap 8.1 mEq/L (5-15); Aspartate Amino Transferase 26 U/L (14-36); Bilirubin,Total 0.5 mg/dl (0.2-1.3); Blood Urea Nitrogen 14 mg/dl (7-17); Calcium 9.1 mg/dl (8.4-10.2); Carbon Dioxide 28 mmol/L (22.0-30.0); Creatinine Clearance Estimated 205 mL/min (50-200); Estimated Glomerular Filt Rate 90 ml/min (>60); GFR (African American) 109 ML/MIN (>60); Globulin 3.3 g/dL (1.3-3.2); Glucose 93 mg/dl (74-100); Lipase 61 U/L (23-300); Total Protein,Serum 7.3 g/dl (6.3-8.2)
[2023-09-19 17:35] LABS: HCG,Quantitative < 2 mIU/ml (0-5.42)
[2023-09-19 18:08] VITALS: BP 119/84; PULSE 85; RESP 16; TEMP 36.7; O2SAT 99
== END 2023-09-19 18:10 | disposition home or self-care (01) ==
PROVIDERS: Emergency Provider Emergency Medicine; PCP Pediatrics
DX: R10.11 Right upper quadrant pain (principal); R11.0 Nausea; R19.7 Diarrhea, unspecified
CPT/HCPCS: 76705; 80053; 81001; 83690; 84702; 85025; 96374; 96375; 99285

== ENCOUNTER 2023-10-05 07:59 | Outpatient (CLI) | payer OTHER, SELFPAY ==
--- NOTE | 2023-10-05 07:59 | CA_ITS ---
APPROVED REPORT EXAM: Comprehensive 2D, Doppler, and color-flow Echocardiogram Dispatcher Service Or Work: Emilie Morales RVT Ht: 5 ft 7 in Wt: 260lbs BSA: 2.26 BP: 128/81 mmHg Indications: PALPS,TACHYCARDIA,CP,ABN EKG,FATIGUE,OBESITY 2D Dimensions Left Atrium 3.24 cm F: 2.7 - 3.8 LA Volume 43.10 mL RVID Base (AP4) 2.16 cm (M/F) 2.5-4.1 LA Volume Index 19.07 mL/m2 (M/F) 16-34 LVOT 2.04 cm (M/F) 1.5-2.5 EF AP4 51.70 % GL Strain -17.5 % M-Mode Dimensions RVDd 1.90 cm (0.9-2.6) LVDd 3.88 cm (3.5-5.7) Ao Diam 3.01 cm (2.0-3.7) LVDs 2.47 cm (3.5-5.7) IVSd 0.91 cm (0.6-1.1) PWd 0.49 cm (0.6-1.1) EF (Teich) 66.70% FS 36.30% EDV (Teich) 65.10 mL TAPSE 2.50 (<1.7) ESV (Teich) 21.70 mL LV Diastology E Decel Time 150 (160-240 msec) E/A Ratio 1.8 MED E' 10.1 (>= 7 cm/sec) E'/MED E' Ratio 10.39 (<= 14) LAT E' 14.4 (>= 10 cm/sec) E/LAT E' Ratio 7.28 (<= 14) Aortic Valve LVOT Max 110.0 (70-110 cm/s) ADAM Index 1.05 cm2/m2 LVOT VTI 19.72 cm AoV Peak Nicola. 160.0 (50-130 cm/s) AO Peak GR. 7.90 mmHg AO Mean GR. 5.60 (<5 mmHg) AO VTI 27.2 (18-25 cm) ADAM (VTI) 2.37 (2.5-4.5 cm2) Mitral Valve MV E Max Nicola. 105.0 (40-130 cm/s) MV A Velocity 60.0 (40-130 cm/s) E/A Ratio 1.76 MV Decel. Time 150 (160-240 ms) Left Ventricle The left ventricle is normal size. The left ventricular systolic function is normal. The left ventricular ejection fraction is within the normal range. There is normal left ventricular wall thickness. There is normal LV segmental wall motion. The left ventricular diastolic function is normal. LVEF is 55%. Right Ventricle The right ventricle is normal size. The right ventricular systolic function is normal. Atria The left atrium size is normal. The right atrium size is normal. There is no Doppler evidence of interatrial shunt. Aortic Valve The aortic valve opens well. There is no aortic valvular stenosis. No aortic regurgitation is present. Mitral Valve The mitral valve is normal in structure. No evidence of mitral valve stenosis. Trace mitral regurgitation. Tricuspid Valve The tricuspid valve leaflets are thin and pliable. Trace tricuspid regurgitation. There is insufficient TR jet to estimate RVSP. Pulmonic Valve The pulmonary valve is normal in structure. Trace pulmonic regurgitation. Great Vessels The aortic root is normal in size. The ascending aorta is normal in size. IVC is normal in size and collapses >50% with inspiration. Pericardium There is no pericardial effusion. Other Information Study Quality: Adequate Conclusion Normal biventricular systolic function. No significant valvular stenosis or regurgitation. Electronically signed by : Nichelle Davis MD 10/12/2023 17:20:08
== END 2023-10-05 23:59 ==
LOC: RT 07:59
PROVIDERS: PCP Pediatrics; Visit Provider Nurse Practitioner
DX: R00.0 Tachycardia, unspecified (principal); R06.00 Dyspnea, unspecified; R07.9 Chest pain, unspecified; R94.31 Abnormal electrocardiogram [ECG] [EKG]
CPT/HCPCS: 93306

== ENCOUNTER 2023-10-17 15:07 | Outpatient (CLI) | payer OTHER, SELFPAY ==
[2023-10-17 15:32] LABS: Basophils % 0.3 % (0.1-2.0); Eosinophils # 0.1 K/mm3 (0.0-0.4); Eosinophils % 1.3 % (0.1-12.0); Hemoglobin 12.8 g/dL (12.2-16.2); Mean Corpuscular HGB Conc 32.7 g/dL (31.8-35.4); Mean Corpuscular Hemoglobin 28.5 pg (27.0-31.2); Mean Platelet Volume 7.6 fl (7.4-10.4); Monocytes # 0.4 K/mm3 (0.1-1.0); Monocytes % 5.3 % (1.7-9.3); Neutrophils # 4.3 K/mm3 (1.8-7.8); Neutrophils % 63.1 % (37.0-80.0); Platelet Count 300 K/mm3 (142-424); Red Blood Count 4.49 M/mm3 (4.20-5.40); Red Cell Distribution Width 13.8 % (11.5-17.5); White Blood Count 6.8 K/mm3 (4.8-10.8)
[2023-10-17 16:49] LABS: Alanine Aminotransferase 21 U/L (12-78); Albumin/Globulin Ratio 1.4 (1.1-1.8); Alkaline Phosphatase 55 U/L (38-126); Anion Gap 9.3 mEq/L (5-15); Aspartate Amino Transferase 23 U/L (14-36); Bilirubin,Total 0.4 mg/dl (0.2-1.3); Blood Urea Nitrogen 12 mg/dl (7-17); Calcium 9.6 mg/dl (8.4-10.2); Carbon Dioxide 25 mmol/L (22.0-30.0); Chloride 107 mmol/L (98-107); Estimated Glomerular Filt Rate 105 ml/min (>60); GFR (African American) 127 ML/MIN (>60); Globulin 2.9 g/dL (1.3-3.2); Glucose 102 mg/dl (74-100); Potassium 4.3 mmoL/L (3.5-5.1); Sodium 137 mmol/L (136-145); Total Protein,Serum 6.9 g/dl (6.3-8.2)
[2023-10-17 17:20] LABS: Thyroid Stimulating Hormone 0.86 uIU/mL (0.465-4.68)
[2023-10-18 11:13] LABS: FSH <0.3 mIU/mL (.); LH <0.3 mIU/mL (.); Prolactin 12.3 ng/mL (4.8-33.4)
[2023-10-27 02:49] LABS: Free Testosterone (Direct) < 0.2 pg/mL (0.0-4.2); Testosterone, Total, LC/MS 26.6 ng/dL (10.0-55.0)
== END 2023-10-17 23:59 ==
LOC: LAB 15:29
PROVIDERS: PCP Pediatrics; Visit Provider Obstetrics & Gynecology
DX: E28.2 Polycystic ovarian syndrome (principal); N92.6 Irregular menstruation, unspecified; R09.89 Other specified symptoms and signs involving the circulatory and respiratory systems
CPT/HCPCS: 36415; 80053; 82626; 83001; 83002; 83498; 84146; 84443; 85025

== ENCOUNTER 2023-10-19 10:51 | Outpatient (CLI) | payer OTHER, SELFPAY ==
--- NOTE | 2023-10-19 10:52 | US_ITS ---
PROCEDURE: US TRANSVAGINAL CLINICAL INDICATION: abnormal uterine bleeding, pcos COMPARISON: No exams were available for comparison FINDINGS: Transvaginal sonographic images of the pelvis were obtained. UTERUS: 7cm x 6cmx 4cm retroverted and retroflexed with a combined endometrial thickness of 3.6mm. There is a small amount of fluid in the endometrial cavity. LEFT OVARY: [id number] with a volume of 2ml. There are several small follicles in the left ovary. The largest measures 6.5 mm. RIGHT OVARY: 3cmx [id number] with a volume of 2.1ml. There are several small follicles in the right ovary. Both ovaries are seen and appear normal. Doppler flow to both ovaries are seen. There is no fluid in the cul-de-sac. IMPRESSION: 1. Retroverted, retroflexed uterus normal in signal and size. The endometrium is thin at 3.6 mm. 2. There is a small amount of fluid within the endometrial cavity. 3. Both ovaries are seen and appear normal with several small follicles on each. 4. No fluid in the cul-de-sac. Dictated by: Joe Martinez MD 10/19/2023 12:24 Joe aMrtinez MD in [place] 10/19/2023 12:24
== END 2023-10-19 23:59 ==
LOC: RAD 10:52
PROVIDERS: PCP Pediatrics; Visit Provider Obstetrics & Gynecology
DX: E28.2 Polycystic ovarian syndrome (principal); N93.9 Abnormal uterine and vaginal bleeding, unspecified
CPT/HCPCS: 76830

== ENCOUNTER 2023-11-02 11:59 | Outpatient (CLI) | payer OTHER, SELFPAY ==
[2023-11-02] VITALS (9 sets, daily range): BP systolic 102–139; BP diastolic 62–91; PULSE 64–106; RESP 16–19; O2SAT 97–100; BMI 41.3
--- NOTE | 2023-11-02 12:00 | CT_ITS ---
APPROVED REPORT Senior Behavioral Scientist: CLINICAL INDICATION Chest Pain TECHNIQUE Image Acquisition: A 128 slice MDCT scanner ([employer] View) was used for data acquisition. A noncontrast coronary calcium scan was performed. A CT attenuation threshold of 130 Hounsfield units (HU) was used for the detection of calcium in contiguous voxels of 1 sq mm in area to be counted as individual lesions. Bolus tracking in the ascending aorta with a threshold of 180 HU was performed. Immediately afterwards, ECG synchronized cardiac CT was then performed from the cardiac base to apex using retrospective gating with ECG tube current modulation. A total of 85 mL of Isovue 370 mg/mL contrast medium was administered at 5 mL/sec followed by a saline flush using a biphasic injection protocol. A tube voltage of 120 KVp was used. The patient received the following medications prior to the cardiac CT. 150 mg of oral metoprolol 5 mg of intravenous metoprolol 15 mg of oral ivabradine 0.8 mg of sublingual nitroglycerin The average heart rate at the time of acquisition was 75 bpm and regular. Image Reconstruction Transaxial images were reconstructed at 0.67 mm slide thickness. Data was reviewed interactively on an advanced workstation capable of 2 and 3-dimensional displays in all conventional reconstruction formats, including multiplanar reformations, maximum intensity projections, curved multiplanar reformations, and volume rendered reconstructions. When applicable, selected routine images describing the relevant coronary anatomy and pathology were saved and sent to PACS. Complications None Technical Quality Overall image quality was good. Coronary artery opacification was adequate. Total DLP (Dose-Length Product) is 1307.2 mGy-cm. The reported value represents the total of one or more individual components during the CT acquisition of this date and at this time, and as such, the same value may appear in more than one CT report depending on the interpreting/reporting physicians. COMPARISON None FINDINGS CT Coronary Calcium Scoring LMA (Left Main Artery) = 0 LAD (Left Anterior Descending) = 0 LCX (Left Coronary Circumflex) = 0 RCA (Right Coronary Artery) = 0 Total Calcium Score = 0 using the AJ-130 method. The interpretation of the calcium heart score is based on the following continuum*: 0 = no calcified plaque detected (risk of coronary artery disease is very low ??? less than 5%) 1-10 = calcium detected in extremely minimal levels (risk of coronary diseases is still low ??? less than 10%) 11-100 = mild levels of plaque detected with certainty (mild or minimal narrowing of heart arteries is likely) 101-400 = definite,at least moderate levels of plaque detected (relatively high risk of a heart attack within 3-5 years) >401-999 = extensive levels of plaque detected (high risk of heart attack, high levels of vascular disease are present, high likelihood of at least one significant coronary narrowing) *The calcium heart score quantifies the burden of coronary calcification/plaque in the coronary arteries. The calcium heart score is not able to evaluate the presence or burden of non-calcified (i.e. soft) plaque. There is no identifiable calcification in the aortic valve, mitral annulus or mitral valve, pericardium, or myocardium. Coronary CT Angiography The coronary arterial system is right dominant. Quantitative Stenosis Grading: Left Main (LM): The left main originates normally from the left sinus of Valsalva. The LM bifurcates into the left anterior descending artery and left circumflex artery. The LM is patent with no evidence of atherosclerosis. Left Anterior Descending (LAD) and Diagonal Branches: The LAD gives 2 diagonal branch(es). The LAD and its branches are patent with no evidence of atherosclerosis. There is no evidence of LAD-myocardial bridge. Left Circumflex (LCX) and Obtuse Marginals (OM): The LCX gives off 1 Obtuse Marginal (OM) branch. The LCX and its branches are patent with no evidence of atherosclerosis. Right Coronary Artery (RCA): The RCA originates normally from the right sinus of Valsalva. The RCA gives off a posterior descending artery (PDA) and posterolateral (PL) branches. The RCA and its branches are patent with no evidence of atherosclerosis. Non-Coronary Cardiac Findings: Analysis of the left ventricular (LV) structure and function was performed after 3-D reconstruction of the LV from axial images, with user-corrected automatic contouring for assessment of LV volumes and user-defined reconstruction from oblique planes for measurement of 3-D cardiac structure and function. -The left ventricle systolic function is normal (LVEF 61%) -There is no left atrial appendage filling defect. Two right pulmonary veins and two left pulmonary veins drain normally into the left atrium. -No pericardial thickening or calcification. -Central and branch pulmonary arteries in the [id number] are unremarkable. -Thoracic aorta within the visualized thoracic aortic-branches in the [id number] is unremarkable. Extracardiac Structures No significant extra-cardiac findings. Note, however, that this study is focused on the cardiac findings. IMPRESSION -No coronary calcification with an Agatston score = 0 using the AJ-130 method. -No evidence of significant flow-limiting atherosclerosis of the coronary arteries. -No evidence of coronary anomalies or myocardial bridge. -CAD-RADS 0. Management recommendations per ACC/AHA guidelines*, as clinically appropriate. *Recommendations: CAD RADS 0: Reassurance. Consider non-atherosclerotic causes of chest pain. CAD RADS 1: Consider non-atherosclerotic causes of chest pain. Consider preventive therapy and risk factor modification. CAD RADS 2: Consider non-atherosclerotic causes of chest pain. Consider preventive therapy and risk factor modification, particularly for patients with nonobstructive plaque in multiple segments. CAD RADS 3: Consider further functional testing. Consider symptom-guided anti-ischemic and preventive pharmacotherapy as well as risk factor modification per published guideline statements. CAD RADS 4A: Consider further functional testing or invasive coronary angiography with revascularization per published guideline statements. Consider symptom-guided anti-ischemic and preventive pharmacotherapy as well as risk factor modification per published guideline statements. CAD RADS 4B: Invasive coronary angiography recommended with revascularization per published guideline statements. Consider symptom-guided anti-ischemic and preventive pharmacotherapy as well as risk factor modification per published guideline statements. CAD RADS 5: Consider invasive angiography and/or viability assessment with revascularization per published guideline statements. Consider symptom-guided anti-ischemic and preventive pharmacotherapy as well as risk factor modification per published guideline statements. CRITICAL RESULT None COMMUNICATION Per this written report The coronary and cardiac findings of this CCTA were reviewed, reported, and signed by Anderson Davis MD (Upholsterer Helper) Conclusion Electronically signed by : Nichelle Davis MD 11/05/2023 16:21:18
[2023-11-02 12:30] LABS: Urine Pregnancy, HCG Qual. Negative (Negative)
[2023-11-02] MEDS: IVABRADINE HCL 7.5MG TABLET *IVABRADINE+METOPROLOL REGIMINE 15 MG PO (12:32)
[2023-11-02] MEDS: METOPROLOL TARTRATE 25MG TABLET *IVABRADINE+METOPROLOL REGIMINE 25 MG PO ×2 (12:33→13:33)
[2023-11-02] MEDS: METOPROLOL TARTRATE 50MG TABLET *IVABRADINE+METOPROLOL REGIMINE 50 MG PO ×2 (12:33→13:33)
[2023-11-02] MEDS: METOPROLOL TARTRATE 5MG/5ML VIAL *IVABRADINE+METOPROLOL REGIMINE 5 MG IV (14:20)
[2023-11-02] MEDS: IOPAMIDOL-370 (76%);100ML BOTTLE 85 ML IV (14:31)
[2023-11-02] MEDS: 0.9 % SODIUM CHLORIDE 50 ML VIAL IV (14:31)
[2023-11-02] MEDS: NITROGLYCERIN 0.4MG SL TABLET 0.800000000000000044 MG SL (14:36)
== END 2023-11-02 15:00 | disposition home or self-care (01) ==
PROVIDERS: PCP Pediatrics; Visit Provider Nurse Practitioner
DX: R00.0 Tachycardia, unspecified (principal); R06.00 Dyspnea, unspecified; R07.9 Chest pain, unspecified; R94.31 Abnormal electrocardiogram [ECG] [EKG]
CPT/HCPCS: 75571; 75574; 81025; Q9967

== ENCOUNTER 2023-12-05 16:27 | Emergency (ER) | payer OTHER, SELFPAY ==
[2023-12-05] VITALS (8 sets, daily range): BP systolic 111–162; BP diastolic 69–105; PULSE 84–115; RESP 16–18; TEMP 36.6–36.8; O2SAT 94–100; BMI 40.7
--- NOTE | 2023-12-05 16:40 | ED_ITS ---
Discharge Plan Disposition Patient Disposition: Home, Self-Care Condition: Good Prescriptions Prescriptions: New naproxen 500 mg tablet 500 mg PO BID PRN (Reason: pain) Qty: 20 0RF No Action norgestimate-ethinyl estradiol [Sprintec (28)] 0.25-35 mg-mcg tablet 1 tab PO DAILY Qty: 28 11RF tranexamic acid 650 mg tablet 1,300 mg PO Q8H 5 Days Qty: 30 1RF Referrals Follow up/Referrals: Nash Ac [Primary Care Provider] - See instructions Activity Restrictions/Add. Instructions Additional Instructions/Restrictions: You were evaluated in the emergency department today. Please pick pulling machine tender your prescription for naproxen at the pharmacy and pick pulling machine tender the TXA that was prescribed to you by your AUTOMATION TECHNICIAN as well. Take these medications as prescribed. You may also take Tylenol as needed for pain. Please follow-up very closely with AUTOMATION TECHNICIAN. Return to the emergency department for new or worsening symptoms. Clinical Impressions Clinical Impression: DUB (dysfunctional uterine bleeding) Stand Alone Forms Stand Alone Forms: Work/School Release Instructions Patient Instructions: DI for Acute Pain -- Adult, DI for Vaginal Bleeding Discharge ED Provider: Juanita Wade General Adult HPI General Chief complaint: PAIN Stated complaint: abdominal pain and vaginal bleeding Time Seen by Provider: 12/05/23 16:34 Mode of Arrival: Ambulatory Source of Information: Patient Limitations: No Limitations Description of Symptoms (Recalled from ER Triage Doc. by RN): pt presents to ED c/o irregular menstrual cycles. pt states she is having severe pelvic pain from starting her cycle 3 days ago. pt states previous cycle before this one was in September. pt states she spoke with Dr. Hannah yesterday who prescribed medication to slow the bleeding. History of Present Illness HPI narrative: This patient is a 23-year-old female with a history of irregular and heavy periods as well as asthma presenting to the emergency department for evaluation with concern for pelvic pain and heavy vaginal bleeding. She notes that on 12/02/2023, she started having pelvic pain, cramping, and vaginal bleeding. It was not severe until today, when the vaginal bleeding became much heavier with passage of large clots. She notes she is having to change a pad every 30 minutes. She also notes that she is having significant generalized pelvic pain/cramping that is not localized to 1 side versus the other. She notes that she spoke with Dr. Kaufman yesterday who prescribed a medication to help slow the bleeding, but she still been bleeding. She notes that she is currently taking OCPs and is not on a placebo week. No other concerns noted at this time. Related Data Previous Rx's Medication Instructions Recorded norgestimate 0.25 mg-ethinyl 1 tab PO DAILY #28 tabs 10/17/23 estradiol 35 mcg tablet (Sprintec (28)) tranexamic acid 650 mg tablet 1,300 mg (2 x 650 mg) PO Q8H 5 12/04/23 days #30 tabs naproxen 500 mg tablet 500 mg PO BID PRN pain #20 tabs 12/05/23 Allergies Allergy/AdvReac Type Severity Reaction Status Date / Time alcohol Allergy Intermediate Itching, Verified 10/24/23 14:42 [From Mastisol Liquid Rash, Adhesive] Redness gum mastic Allergy Intermediate Itching, Verified 10/24/23 14:42 [From Mastisol Liquid Rash, Adhesive] Redness hydrocodone [HYDROCODONE] Allergy Intermediate I-ITCHING Verified 10/24/23 14:42 methyl salicylate Allergy Intermediate Itching, Verified 10/24/23 14:42 [From Mastisol Liquid Rash, Adhesive] Redness storax Allergy Intermediate Itching, Verified 10/24/23 14:42 [From Mastisol Liquid Rash, Adhesive] Redness Sulfa (Sulfonamide Allergy Verified 10/24/23 14:42 Antibiotics) povidone-iodine AdvReac Rash Verified 10/24/23 14:42 [From Betadine] soap [From Betadine] AdvReac Rash Verified 10/24/23 14:42 PFSH [facility] Disclaimer: The information contained in this section may have been updated after the patient was seen, as this information can be updated by other users. Medical History Dyspnea Tachycardia Abnormal ECG Chest pain Left tibialis posterior tendonitis Surgical History History of adenoidectomy History of wisdom tooth extraction, class II edentulism History of tonsillectomy Social History Smoking Status: Never smoker second hand exposure: No alcohol intake: never substance use type: denies use current occupational status: other Travel in the last 8 weeks: None household members: family housing: house current occupation: [employer] current occupational exposures/hazards: No caffeine: Yes ROS Obtained: Yes All systems reviewed & no additional complaints except as documented Physical Exam General General appearance: alert and in no apparent distress Head Head exam: atraumatic and normocephalic Eye Eye exam: Present normal appearance, PERRL and EOMI ENT ENT exam: Present normal exam, normal oropharynx, mucous membranes moist and normal external ear exam Neck Neck exam: Present normal inspection, full ROM and trachea midline; Absent tenderness Chest Chest inspection: Present normal inspection and symmetric chest wall rise; Absent tenderness Respiratory Respiratory exam: Present normal lung sounds bilaterally; Absent respiratory distress, wheezes, stridor or accessory muscle use Cardiovascular Cardiovascular exam: Present normal rhythm and tachycardia Abdominal Exam Abdominal exam: Present soft, tenderness (All across the lower abdomen, especially suprapubic region) and normal bowel sounds; Absent distention, guarding, rebound or rigidity Extremities Exam Extremities exam: Present normal inspection, full ROM and normal capillary refill; Absent tenderness or edema Back Exam Back exam: Present normal inspection and full ROM; Absent tenderness Neurological Exam Neurological exam: Present alert, oriented X3, CN II-XII intact and normal gait; Absent motor sensory deficit Psychiatric Psychiatric exam: Present normal affect and normal mood Skin Skin exam: Present warm and dry Medical Decision Making Medical Records Medical records reviewed: Yes I reviewed the patient's medical records. Dung Inquiry Pt receiving controlled substance: No Vital Signs: 12/05/23 16:28 12/05/23 16:34 12/05/23 16:38 Temperature 98.2 F Temperature Source Oral Pulse Rate Pulse Rate [Right Radial] 115 H Respiratory Rate 16 Blood Pressure 162/105 H 147/69 H Blood Pressure [Right Arm] 162/105 H Blood Pressure Mean 117 95 Blood Pressure Mean [Right Arm] 124 Blood Pressure Source Blood Pressure Source [Right Arm] Automatic Cuff Blood Pressure Position Blood Pressure Position [Right Arm] Sitting 02 Sat by Pulse Oximetry 100 94 L 100 Oxygen Delivery Method 12/05/23 17:01 12/05/23 17:30 12/05/23 18:30 Temperature Temperature Source Pulse Rate 92 H 84 84 Pulse Rate [Right Radial] Respiratory Rate Blood Pressure 130/73 121/75 Blood Pressure [Right Arm] Blood Pressure Mean 89 84 Blood Pressure Mean [Right Arm] Blood Pressure Source Blood Pressure Source [Right Arm] Blood Pressure Position Blood Pressure Position [Right Arm] 02 Sat by Pulse Oximetry 99 100 99 Oxygen Delivery Method 12/05/23 18:31 12/05/23 19:15 Temperature 97.9 F Temperature Source Oral Pulse Rate 92 H 85 Pulse Rate [Right Radial] Respiratory Rate 18 16 Blood Pressure 142/85 H 111/79 Blood Pressure [Right Arm] Blood Pressure Mean Blood Pressure Mean [Right Arm] Blood Pressure Source Automatic Cuff Blood Pressure Source [Right Arm] Blood Pressure Position Sitting Blood Pressure Position [Right Arm] 02 Sat by Pulse Oximetry 100 Oxygen Delivery Method Room Air Lab Data Lab results reviewed: Yes I reviewed the patient's lab results. Lab Results 12/05/23 16:36: Urine Color Yellow, Urine Appearance Clear, Urine pH 5.5, Ur Specific [place] >= 1.030, Urine Protein Trace, Urine Glucose (UA) Negative, Urine Ketones Negative, Urine Blood 3+, Urine Nitrate Negative, Urine Bilirubin Negative, Urine Urobilinogen 0.2, Ur Leukocyte Esterase Negative, Urine RBC 10- 20, Urine WBC None, Ur Squamous Epith Cells Occasional, Ur Transition Epith Cell Occ, Urine Bacteria None 12/05/23 16:37: WBC 6.9, RBC 4.71, Hgb 13.9, Hct 43.2, MCV 91.7, MCH 29.5, MCHC 32.1, RDW 13.4, Plt Count 296, MPV 8.6, Neut % (Auto) 52.5, Lymph % (Auto) 36.5, [place] % (Auto) 7.0, Eos % (Auto) 2.8, Baso % (Auto) 1.1, Neut # (Auto) 3.6, Lymph # (Auto) 2.5, [place] # (Auto) 0.5, Eos # (Auto) 0.2, Baso # (Auto) 0.1, PT 10.4, INR 0.96, APTT 28.5, Sodium 141, Potassium 4.0, Chloride 109 H, Carbon Dioxide 28, Anion Gap 8.0, BUN 13, Creatinine 0.90, Estimated Creat Clear 183, Estimated GFR 78, Est GFR ( Amer) 95, Glucose 94, Calcium 9.7, Total Bilirubin 0.4, AST 28, ALT 24, Alkaline Phosphatase 61, Total Protein 7.6, Albumin 4.2, G lobulin 3.4 H, Albumin/Globulin Ratio 1.2, Serum HCG, Qual Negative 12/05/23 16:37 12/05/23 16:37 Orders (Tests/Meds): ED MEDICATIONS Discontinued Medications Generic Name Dose Route Start Last Admin Trade Name Julianna PRN Reason Stop Dose Admin Acetaminophen 1,000 mg 12/05/23 16:39 12/05/23 16:43 Acetaminophen 1,000mg/100ml Vial IV 12/05/23 16:40 1,000 mg ONCE ONE Administration Lactated Ringer's 1,000 mls @ 999 mls/hr 12/05/23 16:39 12/05/23 16:44 Lactated Ringer's 1000 Ml Bag IV 12/05/23 17:39 999 mls/hr .Q1H1M ONE Administration Ketorolac Tromethamine 15 mg 12/05/23 16:39 12/05/23 16:44 Ketorolac 30mg/Ml Vial IV 12/05/23 16:40 15 mg ONCE ONE Administration Ketorolac Tromethamine 15 mg 12/05/23 18:33 12/05/23 18:46 Ketorolac 30mg/Ml Vial IV 12/05/23 18:34 15 mg ONCE ONE Administration Sodium Chloride 10 ml 12/05/23 16:38 Sodium Chloride 0.9% 10ml Flush Syringe IV 01/04/24 16:37 NEEDED PRN Maintain IV Site ORDERS Category Date Time Status US transvaginal Stat Exams 12/05/23 16:37 Taken Activated Partial Thrombo Time Stat Lab 12/05/23 16:37 Completed Complete Blood Count Auto Diff Stat Lab 12/05/23 16:37 Completed Comprehensive Metabolic Panel Stat Lab 12/05/23 16:37 Completed HCG Qualitative, Serum Stat Lab 12/05/23 16:37 Completed Prothrombin Time INR Stat Lab 12/05/23 16:37 Completed Urinalysis and Microscopic Stat Lab 12/05/23 16:36 Completed Medical Decision Narrative: In summary, this patient is a 23-year-old female presenting to the Emergency Department for evaluation of pelvic pain and vaginal bleeding. Differential diagnoses considered include but are not limited to dysmenorrhea, uterine fibroid, dysfunctional uterine bleeding, symptomatic anemia, vaginal trauma, ovarian cyst, ovarian torsion, . Ruling out the most morbid conditions drove assessment. On exam, the patient is in no acute distress. She does have lower abdominal tenderness as well as mild tachycardia, but exam is otherwise reassuring. Workup included CBC, CMP, PT, PTT, test, urinalysis, and transvaginal ultrasound. Patient was given a bolus of IV fluids as well as IV Toradol and acetaminophen for symptomatic improvement. I independently interpreted ultrasound prior to the radiologist read and noted no concerns for torsion. Please see their read for final interpretation. Labs were obtained that demonstrated no acutely concerning abnormalities. No significant anemia. At this time, patient's workup is reassuring. Per radiology, patient does have thickened endometrial stripe. She already has close follow-up arranged with AUTOMATION TECHNICIAN because of this. She was prescribed TXA by OB, but she did not pick this up. I advised that she should pick it up and take it as prescribed by them and continue to follow-up closely with them. I also gave her prescriptions for naproxen for dysfunctional uterine bleeding and pelvic cramping. At this time, patient was discharged in stable condition with strict return precautions and instructions for follow-up. Critical Care Critical Care Time Critical Care Time: No
[2023-12-05 16:41] LABS: Microscopic, Urine URINE MICROSCOPIC (MICROSCOPIC)
[2023-12-05] MEDS: ACETAMINOPHEN 1,000MG/100ML VIAL 1000 MG IV (16:43)
[2023-12-05] MEDS: LACTATED RINGERS 1000ML 1,000 ML 999 ML IV (16:44)
[2023-12-05] MEDS: KETOROLAC 30MG/ML VIAL 15 MG IV ×2 (16:44→18:46)
[2023-12-05 16:48] LABS: Basophils # 0.1 K/mm3 (0-0.2); Basophils % 1.1 % (0.1-2.0); Eosinophils # 0.2 K/mm3 (0.0-0.4); Eosinophils % 2.8 % (0.1-12.0); Hematocrit 43.2 % (37.0-47.0); Hemoglobin 13.9 g/dL (12.2-16.2); Lymphocytes # 2.5 K/mm3 (0.7-4.5); Lymphocytes % 36.5 % (10-50); Mean Corpuscular HGB Conc 32.1 g/dL (31.8-35.4); Mean Corpuscular Hemoglobin 29.5 pg (27.0-31.2); Mean Corpuscular Volume 91.7 fl (81-99); Mean Platelet Volume 8.6 fl (7.4-10.4); Monocytes # 0.5 K/mm3 (0.1-1.0); Neutrophils # 3.6 K/mm3 (1.8-7.8); Neutrophils % 52.5 % (37.0-80.0); Platelet Count 296 K/mm3 (142-424); Red Blood Count 4.71 M/mm3 (4.20-5.40); Red Cell Distribution Width 13.4 % (11.5-17.5); White Blood Count 6.9 K/mm3 (4.8-10.8)
[2023-12-05 16:49] LABS: Chloride 109 mmol/L (98-107); Sodium 141 mmol/L (136-145)
[2023-12-05 16:51] LABS: Alanine Aminotransferase 24 U/L (12-78); Blood Urea Nitrogen 13 mg/dl (7-17); Creatinine Clearance Estimated 183 mL/min (50-200); Estimated Glomerular Filt Rate 78 ml/min (>60); GFR (African American) 95 ML/MIN (>60)
[2023-12-05 16:52] LABS: Appearance,Urine CLEAR (Clear); Bilirubin,Urine Negative (Negative); Blood, Urine 3+ (Negative); Color,Urine YELLOW (Yellow); Glucose,Urine (UA) Negative (Negative); Ketones,Urine Negative (Negative); Leukocyte Esterase,Urine Negative (Negative); Nitrate,Urine Negative (Negative); PH,Urine 5.5 (5.0-8.5); Protein,Urine TRACE (Negative); Specific Gravity, Urine >= 1.030 (1.005-1.030); Urobilinogen,Urine 0.2 EU/dl (0.2)
[2023-12-05 16:52] LABS: Albumin Level 4.2 g/dl (3.5-5.0); Albumin/Globulin Ratio 1.2 (1.1-1.8); Alkaline Phosphatase 61 U/L (38-126); Aspartate Amino Transferase 28 U/L (14-36); Bilirubin,Total 0.4 mg/dl (0.2-1.3); Calcium 9.7 mg/dl (8.4-10.2); Carbon Dioxide 28 mmol/L (22.0-30.0); Globulin 3.4 g/dL (1.3-3.2); Glucose 94 mg/dl (74-100); Total Protein,Serum 7.6 g/dl (6.3-8.2)
[2023-12-05 16:55] LABS: Activated Partial Thrombo Time 28.5 seconds (22.8-30.6); INR 0.96 (0.9-1.1); Prothrombin Time 10.4 seconds (10.1-12.5)
[2023-12-05 16:57] LABS: HCG Qualitative, Serum Negative (Negative)
[2023-12-05 17:06] LABS: Squamous Epithelial Cell,Urine Occasional #/hpf (0-5); Transitional Epi Cells,Urine OCC #/lpf (0-3)
--- NOTE | 2023-12-05 17:48 | PC.NURSE ---
pt going for u/s.
--- NOTE | 2023-12-05 17:55 | PC.NURSE ---
pt was not in the room when rounding. pt has gone to ultrasound
--- NOTE | 2023-12-05 18:13 | PC.NURSE ---
pt is back from ultrasound
--- NOTE | 2023-12-05 19:09 | PC.NURSE ---
report given to oncoming shift.
== END 2023-12-05 19:18 | disposition home or self-care (01) ==
PROVIDERS: Emergency Provider Emergency Medicine; PCP Pediatrics
DX: R10.2 Pelvic and perineal pain (principal); N93.9 Abnormal uterine and vaginal bleeding, unspecified
CPT/HCPCS: 76830; 80053; 81001; 84703; 85025; 85610; 85730; 96361; 96374; 96375; 96376; 99284; J0131

== ENCOUNTER 2023-12-11 10:28 | Day surgery (SDC) | payer OTHER, SELFPAY ==
[2023-12-11] VITALS (9 sets, daily range): BP systolic 121–145; BP diastolic 67–95; PULSE 85–106; RESP 18–20; TEMP 36.3–36.8; O2SAT 98–100; BMI 39.7
[2023-12-11 11:01] LABS: Urine Pregnancy, HCG Qual. Negative (Negative)
[2023-12-11] MEDS: ACETAMINOPHEN 500MG TAB 1000 MG PO (11:01)
[2023-12-11] MEDS: LACTATED RINGERS 1000ML 1,000 ML 25 ML IV (11:01)
--- NOTE | 2023-12-11 11:32 | P.PNANES_ITS ---
[facility] Disclaimer: The information contained in this section may have been updated after the patient was seen, as this information can be updated by other users. Medical History PCOS (polycystic ovarian syndrome) Pelvic pain Dysmenorrhea Dyspnea Tachycardia Abnormal ECG Chest pain Left tibialis posterior tendonitis Surgical History S/P foot surgery, left History of adenoidectomy History of wisdom tooth extraction, class II edentulism History of tonsillectomy Family History Other No significant family history Social History Smoking Status: Never smoker second hand exposure: No alcohol intake: never substance use type: denies use current occupational status: other Travel in the last 8 weeks: None household members: family housing: house current occupation: [employer] current occupational exposures/hazards: No caffeine: Yes [facility] Anesthesia Checklist Patient Identification Patient Identification: Arm Band and Verbal (Name & ) Structural Data Admitted From: Home Planned Operative Procedure/s: D & C Consent for Planned Operative Procedure(s) Verified: Yes NPO Status Verified Time NPO: 00:00 Chart Verification Results Verified: CBC and HCG Additional verifications Anesthesia Reactions: No Hx Blood Transfusions: No Blood Transfusion Reaction: No Airway Assessment Mallampati Score:: Class II C-Spine Mobility Assessed: Yes TMJ Mobility Assessed: Yes Dentition: Good Dentition Neurological Assessment Level of Consciousness: Awake Hx Seizures: No Numbness or tingling in extremities: No Anesthesia Plan Anesthesia Risk discussed: Yes Anesthesia Plan: Verified ASA Class: III Anesthesia Type: General
--- NOTE | 2023-12-11 13:01 | EXP.OP.NOTE ---
Date of procedure: 12/11/23 Pre-op Diagnosis:: 1. Dysfunctional uterine bleeding 2. Dysmenorrhea 3. Menorrhagia 4. Pelvic pain 5. PCOS Post-op Diagnosis:: 1. Dysfunctional uterine bleeding 2. Dysmenorrhea 3. Menorrhagia 4. Pelvic pain 5. PCOS Procedure performed:: Hysteroscopy, dilation and curettage Surgeon:: Concha Hannah DO Professor Of Finance(s):: N/a PERCUSSION INSTRUMENT REPAIRER:: Hakan Wells Anesthesia: GETA Estimated blood loss (mL): 5 Clinical Note:: Ms Mikala Stewart is a 23 yo who presents to [facility] for scheduled procedure. She complains of abnormal uterine bleeding with severe pelvic pain with bleeding. She reports history of PCOS. She was on Depo Provera from age [age]. This controlled her cycles and she did not have cramping. After 4 years her previous provider instructed her to stop Depo Provera. She was started on December OCP and her cycle became heavy, irregular and painful. Her period in September lasted 09/10-10/02. She was started on Sprintec in October. She is still having horribly painful and heavy periods. She also reports vaginal bleeding after orgasm. Her last period was 12/02/23. It was very heavy and painful. She stated the pain was unbearable and she was soaking through a pad in 30 minutes. She was prescribed Lysteda to help with heavy bleeding. She went to the ED on 12/04 for the bleeding and pain. Pelvic ultrasound final report is not back but images demonstrated endometrial thickness of 0.95 cm with possible endometrial polyp. TSH and CBC within normal limits. She states the bleeding stopped Sunday, 12/07 so she stopped the Lysteda. However, she states the pelvic pain has continued. She desires D&C to see if it will help her symptoms. Operative findings:: 1. On bimanual exam, uterus retroverted, normal size and shape. No adnexal masses palpated 2. On hysteroscopic exam, scant normal appearing endometrial tissue. Small polyp at internal os. Operative note:: Risks, benefits and alternatives were discussed with the patient. Risks include but are not limited to bleeding, infection, uterine perforation and VTE. Patient voiced understanding and agreed to proceed. She was wheeled back to the operating room and placed under general anesthesia without difficulty. She was placed in dorsal lithotomy position and prepped and draped in the normal sterile fashion. Straight catheter was used to drain the bladder. A bimanual exam was performed. A weighted Auvard was placed in the vaginal vault. Single tooth tenaculum was placed on anterior lip of the cervix. Uterus sounded to 8. Sequential Trae dilators were used to dilate the cervical os. Hysteroscope was tested inserted through the cervix without difficulty. Endometrial cavity was evaluated. See findings above. Pictures were taken. A medium size sharp curette was inserted through the cervix into the uterine cavity and endometrium was curetted with a systematic back and forth movement in a 360 degree manner. Scant endometrial curettings will be sent to pathology for review. Instruments were removed from the vagina. Tenaculum site was noted to be hemostatis. Patient was awaken from anesthesia without difficulty. She was transported to recovery room in stable condition. Patient will be discharged home when awake and ambulating. She was given postop instructions as well as instructions to follow-up in the office in 2 weeks at which time pathology will be reviewed. Condition: stable Disposition: same day Specimens:: 1. Endometrial curettings Complications:: None
--- NOTE | 2023-12-11 13:03 | EXP.ANES.I ---
[facility] Anesthesia Record Part I Anesthesia Record I Intake, IV Amount: 500 Hydration: Adequate Estimated blood loss (mL): 5 Urine output (mL): 50 Blood Pressure: 130/75 SaO2: 98 Pulse Rate: 106 Airway Patency: Patent Respiratory Rate: 20 Temperature: 98.1 F Patient is:: Drowsy Stable to PACU at:: 13:00
[2023-12-11] MEDS: PROMETHAZINE HCL 25MG/ML 1ML VIAL 6.25 MG IV (13:20)
[2023-12-11] MEDS: MORPHINE 2MG/ML SYRINGE 1 MG IV (13:25)
--- NOTE | 2023-12-12 07:44 | P.PNANES_ITS ---
[facility] Anesthesia Record Part II Anesthesia Record Part II Discharge Time: 13:30 Destination: Surgical Day Care (OP Surgery) PACU nurse assessment reviewed?: Yes Patient Condition:: Good Anesthesia Complications:: None Swallowing reflex intact?: Yes Airway Patency: Patent Cyanosis?: No Blood Pressure: 140/81 SaO2: 100 Respiratory Rate: 19 Pulse Rate: 88 Temperature: 97.4 F Mental Status: Alert & Oriented Pain level:: 1 Nausea and/or vomitting:: None Intake, IV Amount: 0 Hydration: Adequate
[2023-12-12 07:45] VITALS: BP 140/81; PULSE 88; RESP 19; TEMP 36.3; O2SAT 100
== END 2023-12-11 14:05 | disposition home or self-care (01) ==
PROVIDERS: PCP Pediatrics; Visit Provider Obstetrics & Gynecology
PROC: 0UDB8ZZ Extraction of Endometrium, Via Natural or Artificial Opening Endoscopic (ICD-10-PCS; CPT 58558; principal; 2023-12-11 12:00)
DX: N93.9 Abnormal uterine and vaginal bleeding, unspecified (principal); N94.6 Dysmenorrhea, unspecified; N92.0 Excessive and frequent menstruation with regular cycle; R10.2 Pelvic and perineal pain; E28.2 Polycystic ovarian syndrome; N84.0 Polyp of corpus uteri
CPT/HCPCS: 58558; 81025; J0131; J2405